=== PATIENT | male | born 1935 | race African-American/Black ===

== ENCOUNTER 2016-05-22 04:26 | Observation (INO) | payer MEDICARE, OTHER ==
[~2016-05-22] VITALS: Ht 185.4 cm; Wt 55.3 kg
[~2016-05-22 04:26] MED LIST: /WARF5TA; ALBU83IN INH; AMLO2.5T PO; AMLO25TA PO; ASPI1TAB PO; ASPI81CH PO; ASPI81TA11 PO; AUGM500T34 PO; BALMOINT60 EXT; DIGO0.127 PO; DIGO0.257 OR; DIGO0.259 PO; ELIQ2.5T PO; EUCECRE3 TOP; FLEXERIL; FOLI1TAB2 PO; IBUP-1114 PO; IPRASOL4 INH; LEVA500T PO; LEVO50TA5 PO; METH125VL IM; MILKSUS PO; PANT40TA2 PO; PARO20TA2 PO; PERC5TAB8; PRED20TA PO; PRED5TA PO; PROT20TA11 PO; ROCE1INJ4 IV; Thiamine Hcl PO; VITA100T2 PO; VITMTA PO
[2016-05-22] MEDS ORDERED: CEFUROXIME INJ 750 MG VIAL (J0697) As Ordered ONE (06:48)
[2016-05-22 07:06] LABS: BASO % 0.4 % (0.0-1.0); EOS # 0.1 K/mm3 (0.0-0.50); EOS % 2.4 % (0.0-3.0); LARGE UNSTAINED CELL # 0.1 K/mm3 (0.0-0.4); LARGE UNSTAINED CELL % 3.7 % (0.0-4.0); LYMPH # 0.5 K/mm3 (1.5-4.5); LYMPH % 16.1 % (24.0-44.0); MEAN CORPUSCULAR HEMOGLOBIN 30.3 pg (27.0-33.0); MEAN CORPUSCULAR HGB CONC 31.7 g/dl (32.0-36.5); MEAN CORPUSCULAR VOLUME 95.5 fl (80.0-96.0); MONO # 0.4 K/mm3 (0.0-0.8); MONO % 12.6 % (0.0-5.0); NEUTROPHILS # 1.9 K/mm3 (1.8-7.7); NEUTROPHILS % 64.8 % (36.0-66.0); PLATELET COUNT, AUTOMATED 229 k/mm3 (150-450); RED CELL DISTRIBUTION WIDTH 14.2 % (11.5-14.5)
[2016-05-22 07:08] LABS: ALBUMIN 2.7 GM/DL (3.2-5.2); ALBUMIN/GLOBULIN RATIO 0.49 (1.00-1.93); ALKALINE PHOSPHATASE 109 U/L (45-117); ALT/SGPT 11 U/L (12-78); ANION GAP 6 MEQ/L (8-16); AST/SGOT 15 U/L (15-37); BILIRUBIN,DIRECT 0.2 MG/DL (0.0-0.2); BILIRUBIN,TOTAL 0.5 MG/DL (0.2-1.0); BLOOD UREA NITROGEN 16 MG/DL (7-18); CALCIUM LEVEL 8.7 MG/DL (8.8-10.2); CARBON DIOXIDE LEVEL 31 MEQ/L (21-32); CHLORIDE LEVEL 102 MEQ/L (98-107); CREATININE FOR GFR 0.77 MG/DL (0.70-1.30); GLOMERULAR FILTRATION RATE > 60.0 (>35); GLUCOSE, FASTING 101 MG/DL (83-110); SODIUM LEVEL 139 MEQ/L (136-145); T UPTAKE 31 % (33-40); THYROXINE (T4) 10.4 UG/DL (4.5-12.0); TOTAL PROTEIN 8.2 GM/DL (6.4-8.2)
[2016-05-22 07:10] LABS: INR 1.28
--- NOTE | 2016-05-22 07:46 | REP ---
PA and lateral chest 05/22/2016 Indication: Cough Comparison: PA and lateral chest 02/27/2016, CT chest 02/25/2016 Findings: Cardiac silhouette is mildly enlarged without change. Stable loculated right basilar pleural effusions again noted as well as pleural thickening along the right lateral chest wall. Compressive right basilar atelectasis is noted as what and/or consolidation/infiltrate . The left lung is clear. Retained shrapnel pedicles are seen within the right upper lobe and unchanged. Bones and soft tissues within normal limits Impression: Persistent mild cardiomegaly, stable Loculated right basilar pleural effusion, chronic with pleural thickening along the right lateral chest wall. Right basilar atelectasis and/ or consolidation again noted Signed by Margot Quezada MD 05/22/2016 07:37 A
[2016-05-22] MEDS ORDERED: ISOVUE-370 76% 100ML VIAL (Q9967) As Ordered ONE (07:57)
[2016-05-22 11:20] VITALS: BP 139/70
--- NOTE | 2016-05-22 13:58 | EDDOCDS ---
Physician Documentation [facility] Name: Mckinley Garsia Age: 81 yrs Sex: Male : 1935 Arrival Date: 05/22/2016 Time: 04:26 Bed 5 Private MD: Disposition: 05/22/16 08:05 Hospitalization ordered by Santiago Baker for Inpatient Admission. Preliminary diagnosis are Shortness of breath, Pneumonia, unspecified organism. - Bed requested for 5 Fraser. - Status is Inpatient Admission. [facility] - Condition is Stable. - Problem is new. - Symptoms have improved. Historical: - Allergies: Bees; - Home Meds: 1. Eliquis 2.5 mg oral tab 1 tab 2 times per day 2. levothyroxine 50 mcg Oral tab 1 tab once daily 3. Paxil 20 mg Oral tab 1 tab once daily 4. folic acid 5. Protonix 20 mg Oral TbEC 1 tab once daily - PMHx: Alcoholism; chronic pericardial effusion; chronic pleural effusions; Hypertension; Hypothyroidism; Irregular heart rate; TIA; - PSHx: Chest Tube- Left; - Social history: Smoking status: Patient states was never smoker of tobacco. No barriers to communication noted, The patient speaks fluent Indian, Speaks appropriately for age. - Family history: Not pertinent. - : The pt / caregiver states he / she is on anticoagulants: Eliquis Home medication list is obtained from the patient. - Exposure Risk Screening:: None identified. Vital Signs: 05/22 04:37 BP 143 / 71; Pulse 89; Resp 16; Temp 97.7; Pulse Ox 95% on R/A; Weight 55.34 kg / 122 cz lbs; Height 6 ft. 1 in. (185.42 cm); 11:14 Pulse 70 MON; Pulse Ox 96% ; cjh 11:14 BP 139 / 70 (auto/); cjh 11:14 BP 142 / 66; Pulse 76; Resp 16; Temp 97.1; Pulse Ox 95% ; Pain 0/10; cjh 13:15 BP 142 / 66 (auto/); cjh 13:16 Pulse 80 MON; Pulse Ox 95% ; cjh 04:37 Body Mass Index 16.10 (55.34 kg, 185.42 cm) cz MDM: 04:44 Chest, 2 View (pa\E\lat) Ordered. EDMS 05:38 Financial registration complete. [facility] 05:38 [facility] Payment Agreement was scanned into [employer] and attached to record. [facility] 06:43 IV Saline Lock ordered. cs11 06:43 -Blood Culture (Adults Only), peripheral from different site, or from device/port/PICC cs11 etc. if present ordered. 06:43 cefUROXime 1.5 grams IV at calculated rate once over 30 mins; dilute in 50mL of NS or cs11 D5W ordered. 06:43 -Blood Culture Ordered. EDMS 06:43 Lactic Acid (Whatley tube on ice) Ordered. EDMS 06:43 CBC with Diff Ordered. EDMS 06:43 MED Profile Ordered. EDMS 06:43 Cardiac Marker Panel Ordered. EDMS 06:43 Pt & Aptt Ordered. EDMS 06:44 Liver Profile Ordered. EDMS 06:44 BNP Ordered. EDMS 06:44 Thyroid Profile Ordered. EDMS 06:45 -Blood Culture (Adults Only), peripheral from different site, or from device/port/PICC deg etc. if present complete. 06:47 BLOOD CULTURES Ordered. EDMS 07:41 CT Chest Angio R/O PE Ordered. EDMS 08:00 BED REQUEST+ADM ordered. EDMS 10:37 Admission / Observation Status ordered. EDMS 10:40 Admission / Observation Status ordered. EDMS 12:13 PHYSICAL THERAPY EVAL & TREAT ordered. EDMS Administered Medications: 06:58 Drug: cefUROXime 1.5 grams [cefuroxime sodium 750 mg solution for injection] Route: IV; af2 Rate: calculated rate; Infused Over: 30 mins; Site: left antecubital; Signatures: Dispatcher [employer] EDMS Mayra Roberto, Overhead Cleaner Unit deg Dennis Bautista RN RN cz Pily Mallory RN RN Chris Cole, DO cs11 Sarah King [facility] Jennifer Mesa RN RN af2 Roberta Montes MD MD fg Andrews, Steven, RN RN sa The chart was reviewed and I authenticate all verbal orders and agree with the evaluation and treatment provided.Attachments: 05:38 [facility] Payment Agreement [facility] MTDD
--- NOTE | 2016-05-22 13:58 | EDDOCDS ---
Nurse's Notes [facility] Name: Mckinley Garsia Age: 81 yrs Sex: Male : 1935 Arrival Date: 05/22/2016 Time: 04:26 Bed 5 Private MD: Diagnosis: Shortness of breath;Pneumonia, unspecified organism Presentation: 05/22 04:32 Presenting complaint: Patient states: he fell off the couch about an hour ago and is cz having difficulty breathing thick mucous hard to cough up. Adult Sepsis Screening: The patient does not have new or worsening altered mentation. Patient's respiratory rate is less than 22. Systolic blood pressure is greater than 100. Patient has a qSOFA score of 0- Negative Sepsis Screen. Suicide/Homicide risk assessment- the patient denies having any suicidal and/or homicidal ideations and does not present with any other emotional, behavioral or mental health complaints. Status: Patient is not a direct service worker or dependent. Transition of care: patient was not received from another setting of care. 04:32 Acuity: JINNY Level 3 cz 04:32 Method Of Arrival: Walkin/Carried/Asstd cz Triage Assessment: 04:37 General: Appears uncomfortable. Pain: Location: chest Pain currently is 9 out of 10 on cz a pain scale. Historical: - Allergies: Bees; - Home Meds: 1. Eliquis 2.5 mg oral tab 1 tab 2 times per day 2. levothyroxine 50 mcg Oral tab 1 tab once daily 3. Paxil 20 mg Oral tab 1 tab once daily 4. folic acid 5. Protonix 20 mg Oral TbEC 1 tab once daily - PMHx: Alcoholism; chronic pericardial effusion; chronic pleural effusions; Hypertension; Hypothyroidism; Irregular heart rate; TIA; - PSHx: Chest Tube- Left; - Social history: Smoking status: Patient states was never smoker of tobacco. No barriers to communication noted, The patient speaks fluent Estonian, Speaks appropriately for age. - Family history: Not pertinent. - : The pt / caregiver states he / she is on anticoagulants: Eliquis Home medication list is obtained from the patient. - Exposure Risk Screening:: None identified. Screenin:17 Screening information is obtained from the patient. Fall risk: At risk due to age, The af2 following interventions are performed due to a positive Fall Risk Screen: Fall Risk is added to Special Handling on the patient Summary Screen. A Fall Risk Bracelet was applied to the patient. Side Rails are placed in the up position. A Call [place] is given with instruction to call for help when getting out of bed. Assistance ADL's: requires no assistance with activities of daily living. Abuse/DV Screen: The patient / caregiver reports he/she is: not in a situation that causes fear, pain or injury. Nutritional screening: No deficits noted. Advance Directives: Currently, there is no health care proxy. home support is adequate. Assessment: 05:18 General: Appears in no apparent distress, Behavior is cooperative. Neurological: Level af2 of Consciousness is awake, alert, obeys commands, Oriented to person, place, time. Cardiovascular: Heart tones S1 S2 present. Respiratory: Airway is patent Respiratory effort is even, unlabored, Breath sounds are coarse bilaterally. Reports shortness of breath at rest cough that is productive, pain with cough. Derm: Skin is normal. 05:50 General: pt returned from radiology, tolerated procedure well. . af2 06:20 General: Appears in no apparent distress, Behavior is cooperative. Neurological: Level af2 of Consciousness is awake, alert, Oriented to person, place, time. Respiratory: Airway is patent Respiratory effort is even, unlabored. Derm: Skin is normal. 07:22 General: Appears report has been recvd. Skin warm and dry color satisfactory. Moist jmk pink oral mucosa. appears emaciated. without resp distress. No work of breathing noted. chest CTA. decreased breath sounds to both bases. IV patent with antibiotic infusing.. 08:29 General: Appears antibiotic completed. returned from CT.. positioned for comfort. jmk without resp distress. 09:15 General: Appears in no apparent distress, Behavior is cooperative, sitting up in [facility] bedside chair. 10:35 General: Appears in no apparent distress, comfortable, Behavior is cooperative, [facility] hospitalist in examining pt, family at bedside, offers no complaints. 11:33 General: Appears in no apparent distress, comfortable, Behavior is appropriate for age, cjh cooperative. Pain: Denies pain. Neurological: Level of Consciousness is awake, alert, Oriented to person, place, time. Respiratory: Airway is patent Respiratory effort is even, unlabored, Respiratory pattern is regular, symmetrical. Derm: Skin is normal. 12:30 General: resting quietly, awaiting admission, family states going home, no new problems [facility] or complaints. 13:21 General: Appears in no apparent distress, comfortable, Behavior is appropriate for age, cjh cooperative, assisted OOB to chair and back to bed, tolerated well, no changes from previous, no new complaints. Vital Signs: 04:37 BP 143 / 71; Pulse 89; Resp 16; Temp 97.7; Pulse Ox 95% on R/A; Weight 55.34 kg; Height cz 6 ft. 1 in. (185.42 cm); 11:14 Pulse 70 MON; Pulse Ox 96% ; cjh 11:14 BP 139 / 70 (auto/); cjh 11:14 BP 142 / 66; Pulse 76; Resp 16; Temp 97.1; Pulse Ox 95% ; Pain 0/10; cjh 13:15 BP 142 / 66 (auto/); cjh 13:16 Pulse 80 MON; Pulse Ox 95% ; cjh 04:37 Body Mass Index 16.10 (55.34 kg, 185.42 cm) Vitals: 04:37 Log In Time: May 22, 2016 at 04:29. ED Course: 04:28 Patient visited by Stephanie Cardenas Reg. hs2 04:28 Patient moved to Waiting hs2 04:35 Triage Initiated cz 04:41 Jennifer Mesa RN is Primary Nurse. cz 04:41 Patient moved to 5 cz 04:43 Chris De Leon DO is Attending Physician. cs11 04:43 Patient visited by Chris De Leon DO. cs11 05:09 Patient moved to Radiology jewel 05:17 The patient / caregiver is instructed regarding the plan of care and ED course. af2 05:17 Inserted saline lock: 18 gauge in left antecubital area and blood collected. The af2 patient tolerated the procedure well. 05:18 Patient visited by Jennifer Mesa RN. af2 05:25 Patient moved to 5 jewel 05:38 [facility] Payment Agreement was scanned into [employer] and attached to record. slh 05:50 Patient visited by Jennifer Mesa RN. af2 05:51 Patient visited by Jennifer Mesa RN. af2 06:20 Patient visited by Jennifer Mesa RN. af2 06:45 Thyroid Profile Sent. af2 06:45 BNP Sent. af2 06:45 Liver Profile Sent. af2 06:45 Pt & Aptt Sent. af2 06:45 Cardiac Marker Panel Sent. af2 06:46 MED Profile Sent. af2 06:46 CBC with Diff Sent. af2 06:46 Lactic Acid (Whatley tube on ice) Sent. af2 06:46 -Blood Culture Sent. af2 06:55 BLOOD CULTURES Sent. cln 06:57 Patient visited by Jennifer Mesa RN. af2 07:06 Attending Physician role handed off by Chris De Leon DO fg 07:06 Roberta Montes MD is Attending Physician. fg 07:24 Patient visited by Ash Tyson,ALEXIS. jmk 07:26 Primary Nurse role handed off by Jennifer Mesa RN deg 07:58 Chest, 2 View (pa\E\lat) Returned. EDMS 08:04 Santiago Baker is Hospitalizing Provider. fg 08:30 Patient visited by Ash Tyson,ALEXIS. jmk 11:14 No procedures done that require assistance. [facility] Administered Medications: 06:58 Drug: cefUROXime 1.5 grams [cefuroxime sodium 750 mg solution for injection] Route: IV; af2 Rate: calculated rate; Infused Over: 30 mins; Site: left antecubital; Order Results: Lab Order: Lactic Acid (Whatley tube on ice); SPEC'M 05/22/16 05:14 Test: LACTIC ACID LEVEL, LACTATE; Value: 0.9; Range: 0.4-2.0; Units: MMOL/L; Status: F Lab Order: CBC with Diff; SPEC'M 05/22/16 05:14 Test: WHITE BLOOD COUNT; Value: 3.0; Range: 4.0-10.0; Abnormal: Below low normal; Units: K/mm3; Status: F Test: RED BLOOD COUNT; Value: 3.67; Range: 4.30-6.10; Abnormal: Below low normal; Units: M/mm3; Status: F Test: HEMOGLOBIN; Value: 11.1; Range: 14.0-18.0; Abnormal: Below low normal; Units: g/dl; Status: F Test: HEMATOCRIT; Value: 35.1; Range: 42.0-52.0; Abnormal: Below low normal; Units: %; Status: F Test: MEAN CORPUSCULAR VOLUME; Value: 95.5; Range: 80.0-96.0; Units: fl; Status: F Test: MEAN CORPUSCULAR HEMOGLOBIN; Value: 30.3; Range: 27.0-33.0; Units: pg; Status: F Test: MEAN CORPUSCULAR HGB CONC; Value: 31.7; Range: 32.0-36.5; Abnormal: Below low normal; Units: g/dl; Status: F Test: RED CELL DISTRIBUTION WIDTH; Value: 14.2; Range: 11.5-14.5; Units: %; Status: F Test: PLATELET COUNT, AUTOMATED; Value: 229; Range: 150-450; Units: k/mm3; Status: F Test: NEUTROPHILS %; Value: 64.8; Range: 36.0-66.0; Units: %; Status: F Test: LYMPH %; Value: 16.1; Range: 24.0-44.0; Abnormal: Below low normal; Units: %; Status: F Test: MONO %; Value: 12.6; Range: 0.0-5.0; Abnormal: Above high normal; Units: %; Status: F Test: EOS %; Value: 2.4; Range: 0.0-3.0; Units: %; Status: F Test: BASO %; Value: 0.4; Range: 0.0-1.0; Units: %; Status: F Test: LARGE UNSTAINED CELL %; Value: 3.7; Range: 0.0-4.0; Units: %; Status: F Test: NEUTROPHILS #; Value: 1.9; Range: 1.8-7.7; Units: K/mm3; Status: F Test: LYMPH #; Value: 0.5; Range: 1.5-4.5; Abnormal: Below low normal; Units: K/mm3; Status: F Test: MONO #; Value: 0.4; Range: 0.0-0.8; Units: K/mm3; Status: F Test: EOS #; Value: 0.1; Range: 0.0-0.50; Units: K/mm3; Status: F Test: BASO #; Value: 0.0; Range: 0.0-0.2; Units: K/mm3; Status: F Test: LARGE UNSTAINED CELL #; Value: 0.1; Range: 0.0-0.4; Units: K/mm3; Status: F Lab Order: MED Profile; SPEC'M 05/22/16 05:14 Test: GLUCOSE, FASTING; Value: 101; Range: 83-110; Units: MG/DL; Status: F Test: BLOOD UREA NITROGEN; Value: 16; Range: 7-18; Units: MG/DL; Status: F Test: CREATININE FOR GFR; Value: 0.77; Range: 0.70-1.30; Units: MG/DL; Status: F Test: GLOMERULAR FILTRATION RATE; Value: > 60.0; Range: >35; Status: F Test: SODIUM LEVEL; Value: 139; Range: 136-145; Units: MEQ/L; Status: F Test: POTASSIUM SERUM; Value: 4.0; Range: 3.5-5.1; Units: MEQ/L; Status: F Test: CHLORIDE LEVEL; Value: 102; Range: 98-107; Units: MEQ/L; Status: F Test: CARBON DIOXIDE LEVEL; Value: 31; Range: 21-32; Units: MEQ/L; Status: F Test: ANION GAP; Value: 6; Range: 8-16; Abnormal: Below low normal; Units: MEQ/L; Status: F Test: CALCIUM LEVEL; Value: 8.7; Range: 8.8-10.2; Abnormal: Below low normal; Units: MG/DL; Status: F Test Note: ; Units are mL/min/1.73 m2 Chronic Kidney Disease Staging per NKF: Stage I & II GFR >=60 Normal to Mildly Decreased Stage III GFR 30-59 Moderately Decreased Stage IV GFR 15-29 Severely Decreased Stage V GFR <15 Very Little GFR Left ESRD GFR <15 on TOOL MECHANIC Lab Order: Cardiac Marker Panel; SPEC'M 05/22/16 05:14 Test: CPK CREATINE PHOSPHOKINASE; Value: 48; Range: 39-308; Units: U/L; Status: F Test: CK-MB VALUE MASS; Value: 1.0; Range: 0.0-3.6; Units: NG/ML; Status: F Test: MB/CK RELATIVE INDEX; Value: 2.08; Range: < OR =4; Status: F Test: TROPONIN I; Value: < 0.02; Range: < 0.10; Units: NG/ML; Status: F Test Note: ; DIAGNOSIS CRITERIA MMB ng/ml Relative Index (RI) NON-AMI < or = 5 N/A WHATLEY ZONE > 5 < or = 4 AMI > 5 > 4 Lab Order: Pt & Aptt; [facility] 05/22/16 06:56 Test: PROTHROMBIN TIME; Value: 16.1; Range: 12.3-14.5; Abnormal: Above high normal; Units: SECONDS; Status: F Test: INR; Value: 1.28; Status: F Test: PARTIAL THROMBOPLASTIN TIME; Value: 35.0; Range: 26.6-37.1; Units: SECONDS; Status: F Test Note: ; THERAPUTIC HUMAN INR VALUES INDICATIONS NORMAL RANGES PROPHYLAXIS/TREATMENT OF: VENOUS THROMBOSIS 2.0-3.0 PULMONARY EMBOLISM 2.0-3.0 PREVENTION OF SYSTEMIC EMBOLISM FROM: TISSUE HEART VALVES 2.0-3.0 ACUTE MYOCARDIAL INFARCTION 2.0-3.0 VALVULAR HEART DISEASE 2.0-3.0 ATRIAL FIBRILLATION 2.0-3.0 MECHANICAL VALVES(HIGH RISK) 2.5-3.5 RECURRENT MYOCARDIAL INFARCTION 2.5-3.5 Lab Order: Liver Profile; [facility] 05/22/16 05:14 Test: AST/SGOT; Value: 15; Range: 15-37; Units: U/L; Status: F Test: ALT/SGPT; Value: 11; Range: 12-78; Abnormal: Below low normal; Units: U/L; Status: F Test: ALKALINE PHOSPHATASE; Value: 109; Range: 45-117; Units: U/L; Status: F Test: BILIRUBIN,TOTAL; Value: 0.5; Range: 0.2-1.0; Units: MG/DL; Status: F Test: BILIRUBIN,DIRECT; Value: 0.2; Range: 0.0-0.2; Units: MG/DL; Status: F Test: TOTAL PROTEIN; Value: 8.2; Range: 6.4-8.2; Units: GM/DL; Status: F Test: ALBUMIN; Value: 2.7; Range: 3.2-5.2; Abnormal: Below low normal; Units: GM/DL; Status: F Test: ALBUMIN/GLOBULIN RATIO; Value: 0.49; Range: 1.00-1.93; Abnormal: Below low normal; Status: F Lab Order: BNP; SPEC'M 05/22/16 05:14 Test: BRAIN NATRIURETIC PEPTIDE; Value: 79.2; Range: <100; Units: PG/ML; Status: F Lab Order: Thyroid Profile; SPEC'M 05/22/16 05:14 Test: T UPTAKE; Value: 31; Range: 33-40; Abnormal: Below low normal; Units: %; Status: F Test: THYROXINE (T4); Value: 10.4; Range: 4.5-12.0; Units: UG/DL; Status: F Test: FREE THYROXINE INDEX; Value: 3.2; Range: 1.4-3.8; Units: %; Status: F Test: THYROID STIMULATING HORMONE; Value: 6.400; Range: 0.358-3.740; Abnormal: Above high normal; Units: uIU/ML; Status: F Radiology Order: Chest, 2 View (pa\E\lat) Test: Chest, 2 View (pa\E\lat) REASON FOR EXAMINATION: Cough; PA and lateral chest 05/22/2016; ; Indication: Cough; ; Comparison: PA and lateral chest 02/27/2016, CT chest 02/25/2016; ; Findings: Cardiac silhouette is mildly enlarged without change. Stable; loculated right basilar pleural effusions again noted as well as pleural; thickening along the right lateral chest wall. Compressive right basilar; atelectasis is noted as what and/or consolidation/infiltrate . The left lung is; clear.; ; Retained shrapnel pedicles are seen within the right upper lobe and unchanged.; Bones and soft tissues within normal limits; ; Impression:; ; Persistent mild cardiomegaly, stable; ; Loculated right basilar pleural effusion, chronic with pleural thickening along; the right lateral chest wall.; ; Right basilar atelectasis and/ or consolidation again noted; ; ; ; ; ; ; ; ; Signed by; Margot Quezada MD 05/22/2016 07:37 A; Outcome: 08:05 Decision to Hospitalize by Provider. fg 11:14 Discharge Assessment: Patient awake, alert and oriented x 3. No cognitive and/or cjh functional deficits noted. Patient verbalized understanding of disposition instructions. patient administered narcotics - no. The following High Risk Discharge criteria are identified: None. Admitted to Med/Surg. Condition: good Condition: stable Condition: improved. Property :Personal belongings accompany Pt. 13:57 Patient left the ED. [facility] Signatures: Dispatcher [employer] EDMS Mayra Roberto, Mechanic Marine Engine Unit deg Ash Tyson,RN RN Dennis Umanzor, RN RN Donny Gaston JaneRN RN [facility] Chris De Leon, DO cs11 Charissa Ramos RN RN Sarah Lozano AmberRN RN af2 Roberta Montes MD MD Stephanie Cardenas, Reg Reg hs2 Mari Bone, DIGITAL MEDIA INTERN DIGITAL MEDIA INTERN cln Corrections: (The following items were deleted from the chart) 10:45 10:35 General: Appears in no apparent distress, comfortable, Behavior is cooperative, mk4 hospitalist in examining pt. mk4 MTDD
[2016-05-22 14:18] VITALS: BP 126/61
--- NOTE | 2016-05-22 15:09 | HPEPDOC ---
General Date of Admission May 22, 2016 at 10:38 Primary Care Physician: Josesito Uriarte MD Attending Physician: LEONARDA MCCOY MD Chief Complaint The patient is a 81-year-old male admitted with a reason for visit of Shortness Of Breath. Source: Patient, Family Exam Limitations: No limitations History of Present Illness Mckinley Garsia is an 81 year old male with past medical history of MGUS, chronic atrial fibrillation, chronic pleural effusions, malnutrition, alcohol abuse, pancytopenia, pulmonary hypertension, valvular heart disease, hypothyroidism, CAD, pericardial effusion and TIA presenting with difficulty breathing and pain in the right flank that started at 3:30AM. The patient states that he was watching TV and fell off the couch. He was not able to get himself up, but was eventually assisted by his . The patient denies any inciting event. Patient denies loss of consciousness or experiencing sudden muscle weakness. His admits that he has been getting progressively weaker and that she has to assist him in getting up from a seated position or out of bed. After the incident he states that he has had pain in the right flank only upon moving. The pain does not radiate anywhere. While sitting still in the hospital bed, he denies being in any pain. Upon sitting up or ambulating, he complains of feeling pain and rates it a 7. In addition, this patient has difficulty breathing due to excessive mucous that is difficult for him to cough up. The mucous is green/yellow in color. Denies hemoptysis. He admits to orthopnea and tries to sleep upright in a chair. This is not the first time the patient has had difficulty breathing. Patient admits that over the past year he has been choking due to thick excess mucous production. He had a bout pneumonia back in February 2016 in which he was treated with antibiotics and had a thoracentesis. Patient first started getting pleural effusions in August 2015. Patient admits to difficulty gaining weight for the past year and has been unable to maintain a stead weight. Patient is a poor historian and admits to alcohol abuse until 1 year ago. Denies chest pain, nausea, vomiting, diarrhea, edema. Admits to weakness and shortness of breath. Home Medications Scheduled Apixaban Base (Eliquis) 2.5 Mg Tab 2.5 MG PO BID (Reported) Folic Acid (Folic Acid) 1 Mg Tab 1 MG PO DAILY Levothyroxine Sodium (Synthroid) 50 Mcg Tab 50 MCG PO DAILY (Reported) Multivitamins *[facility] STOCKED* (Thera M Plus *[facility] STOCK[facility]*) 1 Tab Tab 1 TAB PO QHS (Reported) Pantoprazole Sodium Sesquihydr (Protonix) 20 Mg Tab 20 MG PO DAILY (Reported) Paroxetine (Paroxetine HCl) 20 Mg Tab 20 MG PO DAILY (Reported) Thiamine HCl (Vitamin B-1) 100 Mg Tab 100 MG PO QHS (Reported) Scheduled PRN Albuterol Sulfate (Albuterol Sulfate) 2.5 Mg/3 Ml Nebu 2.5 MG INH TID PRN PRN SHORTNESS OF BREATH (Reported) Allergies Coded Allergies: Bee Venom (Unverified Allergy, Unknown, UNKNOWN , 06/13/15) Past Medical History Medical History 1. 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 2. Chronic atrial fibrillation on Eliquis. 3. History of loculated pleural effusion on the right with an entrapment of small portion of the right lung. 4. Severe protein calorie malnutrition. 5. History of alcohol abuse; stopped drinking in December of 2014. 6. Pancytopenia. 7. Moderate pulmonary hypertension. 8. Valvular heart disease with moderate mitral regurgitation, severe tricuspid regurgitation, and mild aortic regurgitation and stenosis. 9. Hypothyroidism. 10. Bilateral carotid artery disease. 11. Prior history of gastrectomy for gastric ulcers in 1979. 12. History of pericardial effusion. 13. History of transient ischemic attack (TIA). Surgical History 1. Thoracentesis-left 2. Tonsillectomy Family History Significant Family History: Diabetes, Heart disease Social History * Smoker: non-smoker Alcohol: other (History of alcohol abuse. Pint of vodka per day. Quit 3 years ago. ) Drugs: denies Recent Travel/Sick Contacts: Denies: Recent sick contacts Psychosocial History: No pertinent psych hx Review of Symptoms Constitutional: Reports: Fatigue, Weakness, Weight Loss, Denies: Fever Pulmonary: Reports: Cough, Dyspnea, Denies: Other Symptoms (Hemoptysis) Cardiovascular: Reports: Orthopnea, Denies: Chest Pain, Edema, Palpitations Gastrointestinal: Denies: Diarrhea, Nausea, Vomiting Psych: Reports: Mood Normal Physical Examination General Exam: Positive: Alert, No Acute Distress Eye Exam: Positive: EOMI, PERRLA ENT Exam: Positive: Atraumatic, Negative: Mucous membr. moist/pink Neck Exam: Positive: +2 carotid pulse wo bruit, Supple, Negative: JVD, Lymphadenopathy Chest Exam: Positive: Clear to auscultation, Negative: Rales, Rhonchi, Wheezing Heart Exam: Positive: Irregular Rhythm, Normal S1, Normal S2, Rubs (Friction rub), Negative: Gallops, Murmurs Abdomen Exam: Positive: Normal bowel sounds, Soft, Negative: Tenderness Extremity Exam: Positive: Normal pulses, Negative: Clubbing, Cyanosis, Edema Vital Signs BP: 143/71, Pulse: 89, Respirations: 16, Temperature: 97.7, Pulse Ox. 95% RA Laboratory Data Labs 24H Laboratory Tests 2 05/22/16 05:14: Aspartate Amino Transf (AST/SGOT) 15, Alanine Aminotransferase (ALT/SGPT) 11L, Alkaline Phosphatase 109, Total Bilirubin 0.5, Direct Bilirubin 0.2, Albumin 2.7L, Albumin/Globulin Ratio 0.49L, Anion Gap 6L, B-Type Natriuretic Peptide 79.2, White Blood Count 3.0L, Red Blood Count 3.67L, Hemoglobin 11.1L, Hematocrit 35.1L, Mean Corpuscular Volume 95.5, Mean Corpuscular Hemoglobin 30.3 , Mean Corpuscular Hemoglobin Concent 31.7L, Red Cell Distribution Width 14.2, Platelet Count 229, Neutrophils (%) (Auto) 64.8, Lymphocytes (%) (Auto) 16.1L, Monocytes (%) (Auto) 12.6H, Eosinophils (%) (Auto) 2.4, Basophils (%) (Auto) 0.4 , Neutrophils # (Auto) 1.9, Lymphocytes # (Auto) 0.5L, Monocytes # (Auto) 0.4, Eosinophils # (Auto) 0.1, Basophils # (Auto) 0.0, Calcium Level 8.7L, Creatine Kinase MB 1.0, Creatine Kinase MB Relative Index 2.08, Free Thyroxine Index 3.2 , Glomerular Filtration Rate > 60.0, Lactic Acid Level 0.9, Large Unclassified Cells # 0.1, Large Unclassified Cells % 3.7, Thyroid Stimulating Hormone (TSH) 6.400H, Thyroxine (T4) 10.4, Total Creatine Kinase 48, Total Protein 8.2, Triiodothyronine (T3) Uptake 31L, Troponin I < 0.02 05/22/16 06:56: Activated Partial Thromboplast Time 35.0, Prothromb Time International Ratio 1.28, Prothrombin Time 16.1H CBC/BMP Laboratory Tests 05/22/16 05:14 Red Blood Count 3.67 L, Mean Corpuscular Volume 95.5, Mean Corpuscular Hemoglobin 30.3, Mean Corpuscular Hemoglobin Concent 31.7 L, Red Cell Distribution Width 14.2, Neutrophils (%) (Auto) 64.8, Lymphocytes (%) (Auto) 16.1 L, Monocytes (%) (Auto) 12.6 H, Eosinophils (%) (Auto) 2.4, Basophils (%) ( Auto) 0.4, Neutrophils # (Auto) 1.9, Lymphocytes # (Auto) 0.5 L, Monocytes # ( Auto) 0.4, Eosinophils # (Auto) 0.1, Basophils # (Auto) 0.0 Microbiology Microbiology 05/22/16 Blood Culture, Received Pending 05/22/16 Blood Culture, Received Pending Assessment/Plan Problems: (1) Shortness of breath Status: Acute Problem Text: Patient has been complaining of difficulty breathing due to excess thick mucous production over the past year. He has a history of recurrent pleural effusions and recent pneumonia in February 2016. Last pleural effusion was in February 2016 and underwent a thoracentesis. Chest X-ray revealed loculated right basilar pleural effusion. Patient does not have a fever or an elevated WBC, rule out pneumonia. CT angio and blood cultures are pending. Continue to observe. (2) Flank pain Status: Acute Problem Text: Patient admits to falling off couch last night and hurting his right flank. On examination there was no ecchymosis or bleeding. Recommend Tramadol 100mg q6 hours prn. (3) Pleural effusion Onset Date: 04/23/2014 Status: Chronic Problem Text: Patient has chronic pleural effusions, most recently of which was due to a pneumonia back in February. The pleural effusions this hospital visit seem less likely infectious in etiology. More likely to be due to his multiple comorbidities. Malnutrition status makes him more susceptible to recurrent pleural effusions because of decreased oncotic pressure if the liver is not making as many proteins. (4) Pancytopenia Status: Chronic Problem Text: Patient's WBC and Hgb are low but around baseline. We will continue to monitor and look to transfuse if Hgb drops below 7.0 (5) MGUS (monoclonal gammopathy of unknown significance) Status: Chronic Problem Text: At this time, the patient is stable. Patient is being follow by Oncology (6) Hypothyroidism Status: Chronic Problem Text: Continue patient's home medication of Levothyroxine 50mcg orally. (7) A-fib Status: Chronic Problem Text: Rate is controlled at this time. Patient is on Eliquis. (8) Carotid artery disease Status: Chronic Problem Text: We will continue to monitor the patient for neurological deficits. (9) Valvular heart disease Status: Chronic Problem Text: Patient has history of severe tricuspid regurgitation. Patient is stable at this time. (10) Weight loss Status: Chronic Problem Text: Patient has a history of fluctuations in weight. Currently he is anorexic. Recommend TSH level and high caloric intake. Previous investigations have not yielded an etiology. (11) Alcohol abuse Status: Resolved Problem Text: Continue to monitor the patient for signs of alcohol withdrawal. Patient has LFT's checked every 3 months by PCP for Eliquis. No history of liver disease. (12) Brain TIA Status: Resolved Problem Text: Patient is on eliquis. Stable at this time. Plan / VTE VTE Prophylaxis Ordered?: Yes (Patient on eliquis for A-fib) GME ATTESTATION GME ATTESTATION My preceptor for this patient encounter was physically present in the building during the encounter and was fully available. As needed, all aspects of the patient interview, examination, medical decision making process, and medical care plan development were reviewed and approved by the preceptor. Preceptor is aware and concurs with the plan as stated in the body of this note and will attest to such by his/her cosignature. TONYA HOLT DO May 22, 2016 10:56
--- NOTE | 2016-05-22 15:57 | REP ---
CT abdomen pelvis without IV contrast 05/22/2016. Clinical history: Abdominal pain. Weight loss, 50, weakness. Comparison CT abdomen pelvis without contrast 08/22/2015. The patient had a contrast CT pulmonary angiogram earlier today. This leaves the bladder filled with some contrast and small amounts of contrast in collecting system and ureters. CT abdomen: The left lung base clear. The right lung base shows consolidative opacity right lower lobe peripherally in the right middle lobe with loculated pleural fluid unchanged. There is cardiomegaly with left atrial and ventricular enlargement and right heart enlargement, unchanged. No pericardial thickening or effusion. Engorgement of the IVC above the liver noted suggesting the right heart failure or tricuspid valve issues. There is calcified without aneurysm. No gross hepatomegaly, hepatic or splenic mass or splenomegaly. No ascites in the upper abdomen. Adrenal glands intact. There are surgical clips in the right upper quadrant adjacent to the left lobe of the liver and pancreas with these were present on 2005 CT where the gallbladder is present. Gallbladder appears collapsed and there is a presumed hyperdensities within representing some layering of small stones or gravel contrast and collecting system and ureter scattered in both kidneys without hydronephrosis. No definite stone disease or renal mass. There is abundant retained stool and gas scattered in the colon without signs of colitis. Small bowel loops are fluid filled but without air fluid levels. No signs of perforation or free air in the abdomen or pelvis on lung window review of all CT slice levels. I do not see definite pathologic sized adenopathy. The periaortic region are small nodes in the periaortic and mesenteric regions without conglomerate vinh masses or pathologic adenopathy. Bone windows show marginal osteophytes throughout the lumbar lower thoracic spine with disc space narrowing. The thoracic region but no compression fractures. There is facet arthropathy but no sign of spondylolysis or spondylolisthesis. Lower thoracic ribs intact. CT pelvis bony hips show osteoarthritic changes with subchondral cystic changes acetabular roof, left greater than right arm osteophytes acetabulum and femoral heads and no evidence of AVN, fracture or destructive lesion or sclerotic and subchondral cystic changes in the femoral heads and both sides well as next trochanters and proximal femoral shaft without fracture. Pubic rami and symphysis pubis intact. SI joints symmetric. There are sclerotic partially fused SI joints and both sides which are without erosive or destructive changes. No ventral or inguinal hernia nor pathologic sized inguinal adenopathy. Small bowel loops the pelvis or fluid-filled distal left colon and sigmoid without definite colitis, diverticulitis, mass . Appendix seen and grossly normal. Atherosclerotic calcification iliac and femoral vessels without aneurysm. Impression: 1. No abdominal or pelvic pathologic sized adenopathy, ascites, abscess or free air. There is a fluid-filled small bowel loops without abnormal dilatation: With the residual stool and gas. Moderate volumes which may reflect constipation. 2. No hepatosplenomegaly, focal hepatic lesion. There is three. No hydronephrosis, hydroureter, renal mass or adrenal lesion. 3. Extensive degenerative disc and facet changes throughout the lumbar and lower thoracic spine without destructive lesions compression deformities or other acute finding. 4. Pleural effusion and right base with chronic infiltrate or atelectasis suggested on currently in the right lower lobe and right middle lobe. 5. The prostate appears enlarged, the bladder without focal lesion. Signed by Sam Shanks MD 05/22/2016 03:49 P
[2016-05-22] MEDS ORDERED: ALBUTEROL SULFATE 2.5 MG/0.5 ML INH NEB SOLN INH PRN (16:00)
[2016-05-22] MEDS: FOLIC ACID 1 MG TAB PO SCH (16:44)
[2016-05-22] MEDS: PANTOPRAZOLE 20 MG TAB PO SCH (18:09)
[2016-05-22 20:00] VITALS: BP 116/56
[2016-05-22] MEDS ORDERED: ACETAMINOPHEN TAB 650MG DOSE (2X325MG) PO PRN (20:15)
--- NOTE | 2016-05-22 20:19 | REP ---
CTA chest 05/22/16 Indication: Cough Comparison: CT chest without contrast 02/25/16, and CTA chest 02/25/16 performed at [facility], CT chest with IV contrast 08/20/2015. Technique: Following dynamic IV contrast administration with 100 ml Isovue 370 mg/ml, 3 mm spiral sections were performed through chest. The thoracic aorta is without aneurysm or dissection. The heart is appear moderately enlarged and unchanged. 13 mm right hilar node, 12 mm subcarinal node, stable , yet mildly enlarged. Homogeneous opacification of the central pulmonary arteries, without filling defects. Chronic consolidation present within the posterior segment right lower lobe. Stable loculated right basilar pleural effusion with thickened rind is again noted, with right basilar atelectasis and/or infiltrate . Small amount of tree in bud type infiltrates and/or scarring present within the right upper lobe Visualized portions of liver, spleen pancreas and adrenals are unremarkable. There is motion artifact. There are surgical clips in right upper quadrant Impression: Moderate cardiomegaly unchanged, with right atrial enlargement. Thoracic aorta without aneurysm or dissection Central pulmonary arteries without filling defects or findings to suggest pulmonary artery emboli bilaterally Small amount of persistent tree in bud type infiltrates and/or scarring present within right upper lobe Stable loculated right basilar pleural effusion with thickened rind is again noted, with right basilar atelectasis and/or infiltrate Signed by Margot Quezada MD 05/22/2016 08:10 P
[2016-05-22] MEDS: APIXABAN 2.5 MG TAB (ELIQUIS) PO SCH (20:24)
[2016-05-22] MEDS: guaiFENesin ER 600 MG TAB PO SCH (20:24)
[2016-05-22] MEDS ORDERED: MULTIVITAMINS/MINERALS THERAP 1 TAB PO SCH (21:00)
[2016-05-22] MEDS ORDERED: THIAMINE 100 MG TAB PO SCH (21:00)
[2016-05-22 22:00] VITALS: BP 116/56
[2016-05-23 04:14] VITALS: BP 112/50
[2016-05-23] MEDS ORDERED: LEVOTHYROXINE 0.05 MG TAB (50 MCG) PO SCH (06:00)
[2016-05-23 07:08] LABS: MEAN CORPUSCULAR HEMOGLOBIN 30.1 pg (27.0-33.0); MEAN CORPUSCULAR HGB CONC 31.7 g/dl (32.0-36.5); MEAN CORPUSCULAR VOLUME 95.1 fl (80.0-96.0); RED CELL DISTRIBUTION WIDTH 14.4 % (11.5-14.5); WHITE BLOOD COUNT 1.8 K/mm3 (4.0-10.0)
[2016-05-23 07:19] LABS: ANION GAP 6 MEQ/L (8-16); BLOOD UREA NITROGEN 14 MG/DL (7-18); CALCIUM LEVEL 9.1 MG/DL (8.8-10.2); CARBON DIOXIDE LEVEL 32 MEQ/L (21-32); CHLORIDE LEVEL 102 MEQ/L (98-107); CREATININE FOR GFR 0.65 MG/DL (0.70-1.30); GLOMERULAR FILTRATION RATE > 60.0 (>35); GLUCOSE, FASTING 102 MG/DL (83-110); POTASSIUM SERUM 3.9 MEQ/L (3.5-5.1); SODIUM LEVEL 140 MEQ/L (136-145)
[2016-05-23] MEDS ORDERED: PARoxetine 20 MG TAB PO SCH (09:00)
[2016-05-23] MEDS: APIXABAN 2.5 MG TAB (ELIQUIS) PO SCH (09:43)
[2016-05-23] MEDS: PANTOPRAZOLE 20 MG TAB PO SCH (09:43)
[2016-05-23] MEDS: guaiFENesin ER 600 MG TAB PO SCH (09:43)
[2016-05-23] MEDS: FOLIC ACID 1 MG TAB PO SCH (09:43)
[2016-05-23 14:00] VITALS: BP 130/60
[2016-05-23] MEDS ORDERED: MUCI600T34 PO (16:43)
--- NOTE | 2016-05-23 18:19 | IPNPDOC ---
Date/Time Seen The patient was seen on 05/23/16 at 09:12. Progress Note SUBJECTIVE: Patient is a 81-year-old male with multiple comorbidities presenting with shortness of breath and right flank pain. The patient was examined today at bedside and was found sleeping in bed at 30 degrees. He seemed to be very comfortable. No acute events overnight. He admits to less mucous production and coughing less than yesterday, making it easier for him to breath and not choke as much. He also admits that his flank pain has improved and was unable to reproduce the pain by sitting up or pushing on his right flank. Denies chest pain, shortness of breath, nausea, vomiting and diarrhea. OBJECTIVE: PHYSICAL EXAMINATION: GENERAL: NAD. A&Ox3. Appears malnourished. HEENT: Normocephalic, atraumatic. EOMI. Mucous membranes moist. CARDIOVASCULAR: Irregular rhythm. Normal S1 and S2. Friction rub. No murmurs or gallops. RESPIRATORY: Clear to auscultation. No rales, rhonchi or wheezes. ABDOMINAL: Soft, non-tender. Normoactive bowel sounds. No peritoneal signs, ecchymosis or masses. EXTREMITIES: No cyanosis, edema or pallor. IMAGING: Chest X ray revealed loculated right pleural effusion, right lobar atelectasis, and cardiomegaly. CT angio showed no evidence of aneurysm, dissection or pulmonary emboli. CT abdomen showed some disc degeneration. Echocardiogram: Echo done in February 2016 showed left ventricular hypertrophy, mitral insufficiency and dilated right ventricle and atrium. DVT prophylaxis ordered?: Yes, patient on Eliquis for atrial fibrillation. ASSESSMENT AND PLAN: This is a 81-year-old male with multiple comorbidities presenting with shortness of breath and abdominal pain. PROBLEMS: 1. Shortness of Breath. Acute. Patient has been complaining of difficulty breathing due to excess thick mucous production over the past year. Chest X-ray revealed loculated right basilar pleural effusion and right basilar atelectasis. CT angio showed no evidence of aneurysm, dissection or pulmonary emboli. Patient does not have a fever or an elevated WBC, rule out pneumonia. Patient also admits that he is producing less sputum, making it easier for him to breath. He appears stable for discharge at this time pending he can arrange transport home. 2. Flank Pain. Acute. Patient admits to falling off couch and hurting his right flank. On examination there was no ecchymosis or bleeding. Patient admits that the abdominal pain is better today. 3. Pleural Effusion. Chronic. Patient has chronic pleural effusions, most recently of which was due to a pneumonia back in February 2016. The pleural effusions this hospital visit seem less likely infectious in etiology. More likely to be due to his multiple comorbidities. Malnutrition status makes him more susceptible to recurrent pleural effusions because of decreased oncotic pressure if the liver is not making as many proteins. 4. Pancytopenia. Chronic. Patient's WBC and Hgb are low but around baseline. 5. MGUS. Chronic. At this time, the patient is stable. Patient is being follow by Oncology 6. Hypothyroidism. Chronic. Continue patient's home medication of Levothyroxine 50mcg orally. 7. Atrial Fibrillation. Chronic. Rate is controlled at this time. Patient is on Eliquis. 8. CAD. Chronic. We will continue to monitor the patient for neurological deficits. 9. Valvular Heart Disease. Chronic. Patient has history of severe tricuspid regurgitation. Patient is stable at this time. 10. Weight Loss. Chronic. Patient has a history of fluctuations in weight. Currently he is anorexic. Recommend TSH level and high caloric intake. Previous investigations have not yielded an etiology. 11. Alcohol Abuse. Resolved. Continue to monitor the patient for signs of alcohol withdrawal. Patient has LFT's checked every 3 months by PCP for Eliquis. No history of liver disease. 12. Brain TIA. Resolved. Patient is on Eliquis. Stable at this time. VS, I&O, 24H, Fishbone VS, I&O, 24H, Fishbone Vital Signs Date Time Temp Pulse Resp B/P Pulse Ox O2 Delivery O2 Flow Rate FiO2 05/23/16 04:14 97.1 70 16 112/50 100 Room Air I&O- Last 24 Hours up to 6 AM 05/23/16 06:00 Intake Total 780 ml Output Total 0 ml Balance 780 ml Laboratory Tests 2 05/23/16 06:28: Anion Gap 6L, Blood Urea Nitrogen 14, Creatinine 0.65L, Sodium Level 140, Potassium Level 3.9, Chloride Level 102, Carbon Dioxide Level 32, Calcium Level 9.1, Glomerular Filtration Rate > 60.0 Laboratory Tests 05/23/16 06:28 Calcium Level 9.1, Red Blood Count 3.42 L, Mean Corpuscular Volume 95.1, Mean Corpuscular Hemoglobin 30.1, Mean Corpuscular Hemoglobin Concent 31.7 L, Red Cell Distribution Width 14.4 Microbiology 05/22/16 Blood Culture - Preliminary, Resulted No growth after 24 hours . All specim... 05/22/16 Blood Culture - Preliminary, Resulted No growth after 24 hours . All specim... TONYA HOLT DO May 23, 2016 09:23
--- NOTE | 2016-05-23 18:33 | DS.PDOC ---
Discharge Summary General Date of Admission May 22, 2016 at 10:38 Date of Discharge May 23 2016 Discharge Summary PRIMARY CARE PHYSICIAN: Dr. Josesito Uriarte ATTENDING AT TIME OF DISCHARGE: Dr. Toshia Guthrie DISCHARGE DIAGNOS(E)S: 1. Shortness of breath 2. Cough 3. Flank pain 4. Chronic pleural effusion 5. Pancytopenia 6. MGUS 7. Hypothyroidism 8. Atrial fibrillation 9. CAD 10. Valvular heart disease 11. Weight loss of unknown etiology despite multiple investigations 12. History of brain TIA HPI & HOSPITAL COURSE: Mr. Garsia who presented to the ED with right flank pain which was worse with inspiration, and he has also been suffering from a cough with phlegm production for multiple days prior. As it turns out he had fallen off his couch earlier that morning, which may have contributed to his right flank pain. He does have a chronic pancytopenia, but he was afebrile upon admission, and a chest x-ray and CT scan of the chest only revealed chronic changes, and therefore empiric antibiotics were held. He was admitted for observation, his mucus production and cough was treated with Mucinex, Acapella, and incentive spirometry. He did not require any additional pain medications while inpatient, and today he is feeling significantly better. His mucus production is decreased, his cough has improved, and his flank pain is gone. Otherwise, please see today's progress note for physical examination and complete review of systems. DISPOSITION: Home DISCHARGE INSTRUCTIONS: Follow-up with primary care provider Dr. Josesito Uriarte a previously scheduled appointment on June 01. Diet as tolerated. Activity as tolerated. If symptoms return, or if you experience worsening of your symptoms, please call your doctor or return to the emergency department. My preceptor for this patient encounter was physically present in the building during the encounter and was fully available. As needed, all aspects of the patient interview, examination, medical decision making process, and medical care plan development were reviewed and approved by the preceptor. Preceptor is aware and concurs with the plan as stated in the body of this note and will attest to such by his/her cosignature. Vital Signs/I&Os Vital Signs Date Time Temp Pulse Resp B/P Pulse Ox O2 Delivery O2 Flow Rate FiO2 05/23/16 14:00 97.4 80 18 130/60 98 Room Air I&O- Last 24 Hours up to 6 AM 05/23/16 06:00 Intake Total 780 ml Output Total 0 ml Balance 780 ml Laboratory Data Labs 24H Laboratory Tests 2 05/23/16 06:28: Anion Gap 6L, Blood Urea Nitrogen 14, Creatinine 0.65L, Sodium Level 140, Potassium Level 3.9, Chloride Level 102, Carbon Dioxide Level 32, Calcium Level 9.1, Glomerular Filtration Rate > 60.0 CBC/BMP Laboratory Tests 05/23/16 06:28 Calcium Level 9.1, Red Blood Count 3.42 L, Mean Corpuscular Volume 95.1, Mean Corpuscular Hemoglobin 30.1, Mean Corpuscular Hemoglobin Concent 31.7 L, Red Cell Distribution Width 14.4 Microbiology Microbiology 05/22/16 Blood Culture - Preliminary, Resulted No growth after 24 hours . All specim... 05/22/16 Blood Culture - Preliminary, Resulted No growth after 24 hours . All specim... Medications Scheduled Apixaban Base (Eliquis) 2.5 Mg Tab 2.5 MG PO BID Folic Acid (Folic Acid) 1 Mg Tab 1 MG PO DAILY Guaifenesin (Mucinex) 600 Mg Tab 600 MG PO BID Levothyroxine Sodium (Synthroid) 50 Mcg Tab 50 MCG PO DAILY Multivitamins *[facility] STOCKED* (Thera M Plus *[facility] STOCKED*) 1 Tab Tab 1 TAB PO QHS Pantoprazole Sodium Sesquihydr (Protonix) 20 Mg Tab 20 MG PO DAILY Paroxetine (Paroxetine HCl) 20 Mg Tab 20 MG PO DAILY Thiamine HCl (Vitamin B-1) 100 Mg Tab 100 MG PO QHS Scheduled PRN Albuterol Sulfate (Albuterol Sulfate) 2.5 Mg/3 Ml Nebu 2.5 MG INH TID PRN PRN SHORTNESS OF BREATH Allergies Coded Allergies: Bee Venom (Unverified Allergy, Unknown, UNKNOWN , 06/13/15) TONYA HOLT DO May 23, 2016 18:32
--- NOTE | 2016-05-24 10:59 | DSES ---
DATE OF ADMISSION: 05/22/2016 DATE OF DISCHARGE: 05/23/2016 ADDENDUM TO PREVIOUSLY DICTATED DISCHARGE SUMMARY For complete details regarding discharge, please refer to that dictation completed on 05/23/2016. I was called by nursing staff for followup blood culture that was done during the patient's admission which came back 1 out of 2 bottles positive for gram positive cocci in clusters. Called patient, phone number and spoke to patient's , Winter Garsia. The told me that the patient is currently sleeping comfortablY. He felt better after he was discharged from the hospital. No fevers, chills, no fatigue noticed by his . Informed her of the result of his abnormal blood culture. Discussed that because he only so far had 1 out of 2 bottles positive, it is suspicious that this could just be contaminant from his skin ronald rather than true infection; however, we do not have a definitive organism until after 48 hours. The patient will be updated by primary team in the morning once final organism comes back. In the meantime, we recommended the patient's to bring the patient to the hospital should he develop any fevers, chills, change in his mentation, or anything else concerning to patient and family. Mrs. Garsia voiced understanding and agreed with the plan. Will update the primary team in the morning. JADA
--- NOTE | 2016-05-24 14:59 | EDDOCDS ---
Nurse's Notes [facility] Name: Mckinley Garsia Age: 81 yrs Sex: Male : 1935 Arrival Date: 05/22/2016 Time: 04:26 Bed 5 Private MD: Diagnosis: Shortness of breath;Pneumonia, unspecified organism Presentation: 05/22 04:32 Presenting complaint: Patient states: he fell off the couch about an hour ago and is cz having difficulty breathing thick mucous hard to cough up. Adult Sepsis Screening: The patient does not have new or worsening altered mentation. Patient's respiratory rate is less than 22. Systolic blood pressure is greater than 100. Patient has a qSOFA score of 0- Negative Sepsis Screen. Suicide/Homicide risk assessment- the patient denies having any suicidal and/or homicidal ideations and does not present with any other emotional, behavioral or mental health complaints. Status: Patient is not a passenger service representative or dependent. Transition of care: patient was not received from another setting of care. 04:32 Acuity: JINYN Level 3 cz 04:32 Method Of Arrival: Walkin/Carried/Asstd cz Triage Assessment: 04:37 General: Appears uncomfortable. Pain: Location: chest Pain currently is 9 out of 10 on cz a pain scale. Historical: - Allergies: Bees; - Home Meds: 1. Eliquis 2.5 mg oral tab 1 tab 2 times per day 2. levothyroxine 50 mcg Oral tab 1 tab once daily 3. Paxil 20 mg Oral tab 1 tab once daily 4. folic acid 5. Protonix 20 mg Oral TbEC 1 tab once daily - PMHx: Alcoholism; chronic pericardial effusion; chronic pleural effusions; Hypertension; Hypothyroidism; Irregular heart rate; TIA; - PSHx: Chest Tube- Left; - Social history: Smoking status: Patient states was never smoker of tobacco. No barriers to communication noted, The patient speaks fluent Niuean, Speaks appropriately for age. - Family history: Not pertinent. - : The pt / caregiver states he / she is on anticoagulants: Eliquis Home medication list is obtained from the patient. - Exposure Risk Screening:: None identified. Screenin:17 Screening information is obtained from the patient. Fall risk: At risk due to age, The af2 following interventions are performed due to a positive Fall Risk Screen: Fall Risk is added to Special Handling on the patient Summary Screen. A Fall Risk Bracelet was applied to the patient. Side Rails are placed in the up position. A Call [place] is given with instruction to call for help when getting out of bed. Assistance ADL's: requires no assistance with activities of daily living. Abuse/DV Screen: The patient / caregiver reports he/she is: not in a situation that causes fear, pain or injury. Nutritional screening: No deficits noted. Advance Directives: Currently, there is no health care proxy. home support is adequate. Assessment: 05:18 General: Appears in no apparent distress, Behavior is cooperative. Neurological: Level af2 of Consciousness is awake, alert, obeys commands, Oriented to person, place, time. Cardiovascular: Heart tones S1 S2 present. Respiratory: Airway is patent Respiratory effort is even, unlabored, Breath sounds are coarse bilaterally. Reports shortness of breath at rest cough that is productive, pain with cough. Derm: Skin is normal. 05:50 General: pt returned from radiology, tolerated procedure well. . af2 06:20 General: Appears in no apparent distress, Behavior is cooperative. Neurological: Level af2 of Consciousness is awake, alert, Oriented to person, place, time. Respiratory: Airway is patent Respiratory effort is even, unlabored. Derm: Skin is normal. 07:22 General: Appears report has been recvd. Skin warm and dry color satisfactory. Moist jmk pink oral mucosa. appears emaciated. without resp distress. No work of breathing noted. chest CTA. decreased breath sounds to both bases. IV patent with antibiotic infusing.. 08:29 General: Appears antibiotic completed. returned from CT.. positioned for comfort. jmk without resp distress. 09:15 General: Appears in no apparent distress, Behavior is cooperative, sitting up in [facility] bedside chair. 10:35 General: Appears in no apparent distress, comfortable, Behavior is cooperative, [facility] hospitalist in examining pt, family at bedside, offers no complaints. 11:33 General: Appears in no apparent distress, comfortable, Behavior is appropriate for age, cjh cooperative. Pain: Denies pain. Neurological: Level of Consciousness is awake, alert, Oriented to person, place, time. Respiratory: Airway is patent Respiratory effort is even, unlabored, Respiratory pattern is regular, symmetrical. Derm: Skin is normal. 12:30 General: resting quietly, awaiting admission, family states going home, no new problems [facility] or complaints. 13:21 General: Appears in no apparent distress, comfortable, Behavior is appropriate for age, cjh cooperative, assisted OOB to chair and back to bed, tolerated well, no changes from previous, no new complaints. Vital Signs: 04:37 BP 143 / 71; Pulse 89; Resp 16; Temp 97.7; Pulse Ox 95% on R/A; Weight 55.34 kg; Height cz 6 ft. 1 in. (185.42 cm); 11:14 Pulse 70 MON; Pulse Ox 96% ; cjh 11:14 BP 139 / 70 (auto/); cjh 11:14 BP 142 / 66; Pulse 76; Resp 16; Temp 97.1; Pulse Ox 95% ; Pain 0/10; cjh 13:15 BP 142 / 66 (auto/); cjh 13:16 Pulse 80 MON; Pulse Ox 95% ; cjh 04:37 Body Mass Index 16.10 (55.34 kg, 185.42 cm) Vitals: 04:37 Log In Time: May 22, 2016 at 04:29. ED Course: 04:28 Patient visited by Stephanie Cardenas Reg. hs2 04:28 Patient moved to Waiting hs2 04:35 Triage Initiated cz 04:41 Jennifer Mesa RN is Primary Nurse. cz 04:41 Patient moved to 5 cz 04:43 Chris De Leon DO is Attending Physician. cs11 04:43 Patient visited by Chris De Leon DO. cs11 05:09 Patient moved to Radiology jewel 05:17 The patient / caregiver is instructed regarding the plan of care and ED course. af2 05:17 Inserted saline lock: 18 gauge in left antecubital area and blood collected. The af2 patient tolerated the procedure well. 05:18 Patient visited by Jennifer Mesa RN. af2 05:25 Patient moved to 5 jewel 05:38 [facility] Payment Agreement was scanned into Hype[employer] and attached to record. slh 05:50 Patient visited by Jennifer Mesa RN. af2 05:51 Patient visited by Jennifer Mesa RN. af2 06:20 Patient visited by Jennifer Mesa RN. af2 06:45 Thyroid Profile Sent. af2 06:45 BNP Sent. af2 06:45 Liver Profile Sent. af2 06:45 Pt & Aptt Sent. af2 06:45 Cardiac Marker Panel Sent. af2 06:46 MED Profile Sent. af2 06:46 CBC with Diff Sent. af2 06:46 Lactic Acid (Whatley tube on ice) Sent. af2 06:46 -Blood Culture Sent. af2 06:55 BLOOD CULTURES Sent. cln 06:57 Patient visited by Jennifer Mesa RN. af2 07:06 Attending Physician role handed off by Chris De Leon DO fg 07:06 Roberta Montes MD is Attending Physician. fg 07:24 Patient visited by Ash Tyson,ALEXIS. jmk 07:26 Primary Nurse role handed off by Jennifer Mesa RN deg 07:58 Chest, 2 View (pa\E\lat) Returned. EDMS 08:04 Santiago Baker is Hospitalizing Provider. fg 08:30 Patient visited by Ash Tyson,ALEXIS. jmk 11:14 No procedures done that require assistance. [facility] 05/23 09:19 T-Sheet-- Draft Copy was scanned into H[employer] and attached to record. gb Administered Medications: 05/22 06:58 Drug: cefUROXime 1.5 grams [cefuroxime sodium 750 mg solution for injection] Route: IV; af2 Rate: calculated rate; Infused Over: 30 mins; Site: left antecubital; Order Results: Lab Order: Lactic Acid (Whatley tube on ice); SPEC'M 05/22/16 05:14 Test: LACTIC ACID LEVEL, LACTATE; Value: 0.9; Range: 0.4-2.0; Units: MMOL/L; Status: F Lab Order: CBC with Diff; SPEC'M 05/22/16 05:14 Test: WHITE BLOOD COUNT; Value: 3.0; Range: 4.0-10.0; Abnormal: Below low normal; Units: K/mm3; Status: F Test: RED BLOOD COUNT; Value: 3.67; Range: 4.30-6.10; Abnormal: Below low normal; Units: M/mm3; Status: F Test: HEMOGLOBIN; Value: 11.1; Range: 14.0-18.0; Abnormal: Below low normal; Units: g/dl; Status: F Test: HEMATOCRIT; Value: 35.1; Range: 42.0-52.0; Abnormal: Below low normal; Units: %; Status: F Test: MEAN CORPUSCULAR VOLUME; Value: 95.5; Range: 80.0-96.0; Units: fl; Status: F Test: MEAN CORPUSCULAR HEMOGLOBIN; Value: 30.3; Range: 27.0-33.0; Units: pg; Status: F Test: MEAN CORPUSCULAR HGB CONC; Value: 31.7; Range: 32.0-36.5; Abnormal: Below low normal; Units: g/dl; Status: F Test: RED CELL DISTRIBUTION WIDTH; Value: 14.2; Range: 11.5-14.5; Units: %; Status: F Test: PLATELET COUNT, AUTOMATED; Value: 229; Range: 150-450; Units: k/mm3; Status: F Test: NEUTROPHILS %; Value: 64.8; Range: 36.0-66.0; Units: %; Status: F Test: LYMPH %; Value: 16.1; Range: 24.0-44.0; Abnormal: Below low normal; Units: %; Status: F Test: MONO %; Value: 12.6; Range: 0.0-5.0; Abnormal: Above high normal; Units: %; Status: F Test: EOS %; Value: 2.4; Range: 0.0-3.0; Units: %; Status: F Test: BASO %; Value: 0.4; Range: 0.0-1.0; Units: %; Status: F Test: LARGE UNSTAINED CELL %; Value: 3.7; Range: 0.0-4.0; Units: %; Status: F Test: NEUTROPHILS #; Value: 1.9; Range: 1.8-7.7; Units: K/mm3; Status: F Test: LYMPH #; Value: 0.5; Range: 1.5-4.5; Abnormal: Below low normal; Units: K/mm3; Status: F Test: MONO #; Value: 0.4; Range: 0.0-0.8; Units: K/mm3; Status: F Test: EOS #; Value: 0.1; Range: 0.0-0.50; Units: K/mm3; Status: F Test: BASO #; Value: 0.0; Range: 0.0-0.2; Units: K/mm3; Status: F Test: LARGE UNSTAINED CELL #; Value: 0.1; Range: 0.0-0.4; Units: K/mm3; Status: F Lab Order: MED Profile; SPEC'M 05/22/16 05:14 Test: GLUCOSE, FASTING; Value: 101; Range: 83-110; Units: MG/DL; Status: F Test: BLOOD UREA NITROGEN; Value: 16; Range: 7-18; Units: MG/DL; Status: F Test: CREATININE FOR GFR; Value: 0.77; Range: 0.70-1.30; Units: MG/DL; Status: F Test: GLOMERULAR FILTRATION RATE; Value: > 60.0; Range: >35; Status: F Test: SODIUM LEVEL; Value: 139; Range: 136-145; Units: MEQ/L; Status: F Test: POTASSIUM SERUM; Value: 4.0; Range: 3.5-5.1; Units: MEQ/L; Status: F Test: CHLORIDE LEVEL; Value: 102; Range: 98-107; Units: MEQ/L; Status: F Test: CARBON DIOXIDE LEVEL; Value: 31; Range: 21-32; Units: MEQ/L; Status: F Test: ANION GAP; Value: 6; Range: 8-16; Abnormal: Below low normal; Units: MEQ/L; Status: F Test: CALCIUM LEVEL; Value: 8.7; Range: 8.8-10.2; Abnormal: Below low normal; Units: MG/DL; Status: F Test Note: ; Units are mL/min/1.73 m2 Chronic Kidney Disease Staging per NKF: Stage I & II GFR >=60 Normal to Mildly Decreased Stage III GFR 30-59 Moderately Decreased Stage IV GFR 15-29 Severely Decreased Stage V GFR <15 Very Little GFR Left ESRD GFR <15 on PATIENT SAFETY OFFICER Lab Order: Cardiac Marker Panel; SPEC'M 05/22/16 05:14 Test: CPK CREATINE PHOSPHOKINASE; Value: 48; Range: 39-308; Units: U/L; Status: F Test: CK-MB VALUE MASS; Value: 1.0; Range: 0.0-3.6; Units: NG/ML; Status: F Test: MB/CK RELATIVE INDEX; Value: 2.08; Range: < OR =4; Status: F Test: TROPONIN I; Value: < 0.02; Range: < 0.10; Units: NG/ML; Status: F Test Note: ; DIAGNOSIS CRITERIA MMB ng/ml Relative Index (RI) NON-AMI < or = 5 N/A WHATLEY ZONE > 5 < or = 4 AMI > 5 > 4 Lab Order: Pt & Aptt; SPEC'M 05/22/16 06:56 Test: PROTHROMBIN TIME; Value: 16.1; Range: 12.3-14.5; Abnormal: Above high normal; Units: SECONDS; Status: F Test: INR; Value: 1.28; Status: F Test: PARTIAL THROMBOPLASTIN TIME; Value: 35.0; Range: 26.6-37.1; Units: SECONDS; Status: F Test Note: ; THERAPUTIC HUMAN INR VALUES INDICATIONS NORMAL RANGES PROPHYLAXIS/TREATMENT OF: VENOUS THROMBOSIS 2.0-3.0 PULMONARY EMBOLISM 2.0-3.0 PREVENTION OF SYSTEMIC EMBOLISM FROM: TISSUE HEART VALVES 2.0-3.0 ACUTE MYOCARDIAL INFARCTION 2.0-3.0 VALVULAR HEART DISEASE 2.0-3.0 ATRIAL FIBRILLATION 2.0-3.0 MECHANICAL VALVES(HIGH RISK) 2.5-3.5 RECURRENT MYOCARDIAL INFARCTION 2.5-3.5 Lab Order: Liver Profile; SPECM 05/22/16 05:14 Test: AST/SGOT; Value: 15; Range: 15-37; Units: U/L; Status: F Test: ALT/SGPT; Value: 11; Range: 12-78; Abnormal: Below low normal; Units: U/L; Status: F Test: ALKALINE PHOSPHATASE; Value: 109; Range: 45-117; Units: U/L; Status: F Test: BILIRUBIN,TOTAL; Value: 0.5; Range: 0.2-1.0; Units: MG/DL; Status: F Test: BILIRUBIN,DIRECT; Value: 0.2; Range: 0.0-0.2; Units: MG/DL; Status: F Test: TOTAL PROTEIN; Value: 8.2; Range: 6.4-8.2; Units: GM/DL; Status: F Test: ALBUMIN; Value: 2.7; Range: 3.2-5.2; Abnormal: Below low normal; Units: GM/DL; Status: F Test: ALBUMIN/GLOBULIN RATIO; Value: 0.49; Range: 1.00-1.93; Abnormal: Below low normal; Status: F Lab Order: BNP; SPEC'M 05/22/16 05:14 Test: BRAIN NATRIURETIC PEPTIDE; Value: 79.2; Range: <100; Units: PG/ML; Status: F Lab Order: Thyroid Profile; SPEC'M 05/22/16 05:14 Test: T UPTAKE; Value: 31; Range: 33-40; Abnormal: Below low normal; Units: %; Status: F Test: THYROXINE (T4); Value: 10.4; Range: 4.5-12.0; Units: UG/DL; Status: F Test: FREE THYROXINE INDEX; Value: 3.2; Range: 1.4-3.8; Units: %; Status: F Test: THYROID STIMULATING HORMONE; Value: 6.400; Range: 0.358-3.740; Abnormal: Above high normal; Units: uIU/ML; Status: F Radiology Order: Chest, 2 View (pa\E\lat) Test: Chest, 2 View (pa\E\lat) REASON FOR EXAMINATION: Cough; PA and lateral chest 05/22/2016; ; Indication: Cough; ; Comparison: PA and lateral chest 02/27/2016, CT chest 02/25/2016; ; Findings: Cardiac silhouette is mildly enlarged without change. Stable; loculated right basilar pleural effusions again noted as well as pleural; thickening along the right lateral chest wall. Compressive right basilar; atelectasis is noted as what and/or consolidation/infiltrate . The left lung is; clear.; ; Retained shrapnel pedicles are seen within the right upper lobe and unchanged.; Bones and soft tissues within normal limits; ; Impression:; ; Persistent mild cardiomegaly, stable; ; Loculated right basilar pleural effusion, chronic with pleural thickening along; the right lateral chest wall.; ; Right basilar atelectasis and/ or consolidation again noted; ; ; ; ; ; ; ; ; Signed by; Margot Quezada MD 05/22/2016 07:37 A; Outcome: 08:05 Decision to Hospitalize by Provider. fg 11:14 Discharge Assessment: Patient awake, alert and oriented x 3. No cognitive and/or h functional deficits noted. Patient verbalized understanding of disposition instructions. patient administered narcotics - no. The following High Risk Discharge criteria are identified: None. Admitted to Med/Surg. Condition: good Condition: stable Condition: improved. Property :Personal belongings accompany Pt. 13:57 Patient left the ED. [facility] Signatures: Dispatcher [employer] EDMS Mayra Roberto, Traffic Worker Unit deg Ash Tyson,RN RN Dennis Umanzor, RN RN Donny Gaston Gloria, Reg Reg gb Pily Mallory,RN RN [facility] Chris De Leon, DO cs11 Charissa Ramos RN RN 4 Sarah King Amber,RN RN af2 Roberta Montes MD MD Stephanie Cardenas, Reg Reg hs2 Mrai Bone, YOON INNER TUBE CUTTER cln Corrections: (The following items were deleted from the chart) 10:45 10:35 General: Appears in no apparent distress, comfortable, Behavior is cooperative, mk4 hospitalist in examining pt. mk4 Chart Complete MTDD
--- NOTE | 2016-05-24 14:59 | EDDOCDS ---
Physician Documentation [facility] Name: Mckinley Garsia Age: 81 yrs Sex: Male : 1935 Arrival Date: 05/22/2016 Time: 04:26 Bed 5 Private MD: Disposition: 05/22/16 08:05 Hospitalization ordered by Santiago Baker for Inpatient Admission. Preliminary diagnosis are Shortness of breath, Pneumonia, unspecified organism. - Bed requested for 5 Fraser. - Status is Inpatient Admission. [facility] - Condition is Stable. - Problem is new. - Symptoms have improved. Historical: - Allergies: Bees; - Home Meds: 1. Eliquis 2.5 mg oral tab 1 tab 2 times per day 2. levothyroxine 50 mcg Oral tab 1 tab once daily 3. Paxil 20 mg Oral tab 1 tab once daily 4. folic acid 5. Protonix 20 mg Oral TbEC 1 tab once daily - PMHx: Alcoholism; chronic pericardial effusion; chronic pleural effusions; Hypertension; Hypothyroidism; Irregular heart rate; TIA; - PSHx: Chest Tube- Left; - Social history: Smoking status: Patient states was never smoker of tobacco. No barriers to communication noted, The patient speaks fluent Mauritian, Speaks appropriately for age. - Family history: Not pertinent. - : The pt / caregiver states he / she is on anticoagulants: Eliquis Home medication list is obtained from the patient. - Exposure Risk Screening:: None identified. Vital Signs: 05/22 04:37 BP 143 / 71; Pulse 89; Resp 16; Temp 97.7; Pulse Ox 95% on R/A; Weight 55.34 kg / 122 cz lbs; Height 6 ft. 1 in. (185.42 cm); 11:14 Pulse 70 MON; Pulse Ox 96% ; cjh 11:14 BP 139 / 70 (auto/); cjh 11:14 BP 142 / 66; Pulse 76; Resp 16; Temp 97.1; Pulse Ox 95% ; Pain 0/10; cjh 13:15 BP 142 / 66 (auto/); cjh 13:16 Pulse 80 MON; Pulse Ox 95% ; cjh 04:37 Body Mass Index 16.10 (55.34 kg, 185.42 cm) cz MDM: 04:44 Chest, 2 View (pa\E\lat) Ordered. EDMS 05:38 Financial registration complete. [facility] 05:38 [facility] Payment Agreement was scanned into [employer] and attached to record. [facility] 06:43 IV Saline Lock ordered. cs11 06:43 -Blood Culture (Adults Only), peripheral from different site, or from device/port/PICC cs11 etc. if present ordered. 06:43 cefUROXime 1.5 grams IV at calculated rate once over 30 mins; dilute in 50mL of NS or cs11 D5W ordered. 06:43 -Blood Culture Ordered. EDMS 06:43 Lactic Acid (Whatley tube on ice) Ordered. EDMS 06:43 CBC with Diff Ordered. EDMS 06:43 MED Profile Ordered. EDMS 06:43 Cardiac Marker Panel Ordered. EDMS 06:43 Pt & Aptt Ordered. EDMS 06:44 Liver Profile Ordered. EDMS 06:44 BNP Ordered. EDMS 06:44 Thyroid Profile Ordered. EDMS 06:45 -Blood Culture (Adults Only), peripheral from different site, or from device/port/PICC deg etc. if present complete. 06:47 BLOOD CULTURES Ordered. EDMS 07:41 CT Chest Angio R/O PE Ordered. EDMS 08:00 BED REQUEST+ADM ordered. EDMS 10:37 Admission / Observation Status ordered. EDMS 10:40 Admission / Observation Status ordered. EDMS 12:13 PHYSICAL THERAPY EVAL & TREAT ordered. [facility] 05/23 09:19 T-Sheet-- Draft Copy was scanned into [employer] and attached to record. gb Administered Medications: 05/22 06:58 Drug: cefUROXime 1.5 grams [cefuroxime sodium 750 mg solution for injection] Route: IV; af2 Rate: calculated rate; Infused Over: 30 mins; Site: left antecubital; Signatures: Dispatcher [employer] EDMS Mayra Roberto, Outside Contractor Sales Unit deg Dennis Bautista RN RN cz Karoline Hollis, Reg Reg gb Pily MalloryRN RN Chris Sheppard DO DO cs11 Sarah King [facility] Jennifer Mesa RN RN af2 Roberta Montes MD MD fg Andrews, Steven, RN RN sa The chart was reviewed and I authenticate all verbal orders and agree with the evaluation and treatment provided.Attachments: 05:38 [facility] Payment Agreement slh 01/17 09:19 T-Sheet-- Draft Copy gb Chart Complete MTDD
--- NOTE | 2016-05-24 14:59 | EDDOCDS ---
Physician Documentation [facility] Name: Mckinley Garsia Age: 81 yrs Sex: Male : 1935 Arrival Date: 05/22/2016 Time: 04:26 Bed 5 Private MD: Disposition: 05/22/16 08:05 Hospitalization ordered by Santiago Baker for Inpatient Admission. Preliminary diagnosis are Shortness of breath, Pneumonia, unspecified organism. - Bed requested for 5 Fraser. - Status is Inpatient Admission. [facility] - Condition is Stable. - Problem is new. - Symptoms have improved. Historical: - Allergies: Bees; - Home Meds: 1. Eliquis 2.5 mg oral tab 1 tab 2 times per day 2. levothyroxine 50 mcg Oral tab 1 tab once daily 3. Paxil 20 mg Oral tab 1 tab once daily 4. folic acid 5. Protonix 20 mg Oral TbEC 1 tab once daily - PMHx: Alcoholism; chronic pericardial effusion; chronic pleural effusions; Hypertension; Hypothyroidism; Irregular heart rate; TIA; - PSHx: Chest Tube- Left; - Social history: Smoking status: Patient states was never smoker of tobacco. No barriers to communication noted, The patient speaks fluent [place], Speaks appropriately for age. - Family history: Not pertinent. - : The pt / caregiver states he / she is on anticoagulants: Eliquis Home medication list is obtained from the patient. - Exposure Risk Screening:: None identified. Vital Signs: 05/22 04:37 BP 143 / 71; Pulse 89; Resp 16; Temp 97.7; Pulse Ox 95% on R/A; Weight 55.34 kg / 122 cz lbs; Height 6 ft. 1 in. (185.42 cm); 11:14 Pulse 70 MON; Pulse Ox 96% ; cjh 11:14 BP 139 / 70 (auto/); cjh 11:14 BP 142 / 66; Pulse 76; Resp 16; Temp 97.1; Pulse Ox 95% ; Pain 0/10; cjh 13:15 BP 142 / 66 (auto/); cjh 13:16 Pulse 80 MON; Pulse Ox 95% ; cjh 04:37 Body Mass Index 16.10 (55.34 kg, 185.42 cm) cz MDM: 04:44 Chest, 2 View (pa\E\lat) Ordered. EDMS 05:38 Financial registration complete. [facility] 05:38 [facility] Payment Agreement was scanned into One-[employer] and attached to record. [facility] 06:43 IV Saline Lock ordered. cs11 06:43 -Blood Culture (Adults Only), peripheral from different site, or from device/port/PICC cs11 etc. if present ordered. 06:43 cefUROXime 1.5 grams IV at calculated rate once over 30 mins; dilute in 50mL of NS or cs11 D5W ordered. 06:43 -Blood Culture Ordered. EDMS 06:43 Lactic Acid ([place] tube on ice) Ordered. EDMS 06:43 CBC with Diff Ordered. EDMS 06:43 MED Profile Ordered. EDMS 06:43 Cardiac Marker Panel Ordered. EDMS 06:43 Pt & Aptt Ordered. EDMS 06:44 Liver Profile Ordered. EDMS 06:44 BNP Ordered. EDMS 06:44 Thyroid Profile Ordered. EDMS 06:45 -Blood Culture (Adults Only), peripheral from different site, or from device/port/PICC deg etc. if present complete. 06:47 BLOOD CULTURES Ordered. EDMS 07:41 CT Chest Angio R/O PE Ordered. EDMS 08:00 BED REQUEST+ADM ordered. EDMS 10:37 Admission / Observation Status ordered. EDMS 10:40 Admission / Observation Status ordered. EDMS 12:13 PHYSICAL THERAPY EVAL & TREAT ordered. [facility] 05/23 09:19 T-Sheet-- Draft Copy was scanned into One-[employer] and attached to record. gb Administered Medications: 05/22 06:58 Drug: cefUROXime 1.5 grams [cefuroxime sodium 750 mg solution for injection] Route: IV; af2 Rate: calculated rate; Infused Over: 30 mins; Site: left antecubital; Signatures: Dispatcher [employer] EDMS Mayra Roberto, Senior Net Engineer Unit deg Dennis Bautista RN RN cz Karoline Hollis, Reg Reg gb Pily MalloryRN RN Chris Sheppard DO DO cs11 Sarah King [facility] Jennifer Mesa RN RN af2 Roberta Montes MD MD fg Andrews, Steven, RN RN sa The chart was reviewed and I authenticate all verbal orders and agree with the evaluation and treatment provided.Attachments: 05:38 [facility] Payment Agreement slh 01/17 09:19 T-Sheet-- Draft Copy gb Chart Complete MTDD
== END 2016-05-23 18:40 | disposition home or self-care (01) ==
LOC: M ED 04:26 → M ED INP 10:38 → M MS5PR 14:05
PROVIDERS: ADMIT Internal Medicine; ATTEND Internal Medicine
DX: R06.02 Shortness of breath (principal); R05 Cough; R10.9 Unspecified abdominal pain; J90 Pleural effusion, not elsewhere classified; D61.818 Other pancytopenia; D47.2 Monoclonal gammopathy; E03.9 Hypothyroidism, unspecified; I48.2 Chronic atrial fibrillation; I25.10 Atherosclerotic heart disease of native coronary artery without angina pectoris; I36.1 Nonrheumatic tricuspid (valve) insufficiency; E43 Unspecified severe protein-calorie malnutrition; I27.0 Primary pulmonary hypertension; I65.23 Occlusion and stenosis of bilateral carotid arteries; Z86.73 Personal history of transient ischemic attack (TIA), and cerebral infarction without residual deficits; Z91.81 History of falling; Z79.899 Other long term (current) drug therapy; Z79.01 Long term (current) use of anticoagulants; Z91.030 Bee allergy status; F10.21 Alcohol dependence, in remission
CPT/HCPCS: 36415; 71020; 71275; 74176; 80048; 80076; 82550; 82553; 83605; 83880; 84436; 84443; 84479; 84484; 85025; 85027; 85610; 85730; 87040; 87077; 87186; 96374; 99285; G0378; J0697; Q9967